=== PATIENT | female | born 1950 | race Caucasian/White ===

== ENCOUNTER 2018-07-13 07:28 | Day surgery (SDC) ==
[2018-07-13] MEDS: BETADINE OPTH PREP OP PRN ×2 (07:45→08:42)
[2018-07-13] MEDS: TETRACAINE 0.5% UNIT-DOSE OP PRN ×2 (07:45→08:42)
[2018-07-13] MEDS: CYCLOGYL 2% OPTH OP PRN ×3 (07:46→07:56)
[2018-07-13] MEDS ORDERED: LIDOCAINE 1%/PHENYLEPHRINE 1.5% BSS (SURGERY) INTRAOCULA ONE (08:54)
[2018-07-13] MEDS ORDERED: BRIMONIDINE TARTRATE 0.2% OPTH SOL OP PRN (08:54)
[2018-07-13] MEDS ORDERED: DEX-MOXI-KETOR OPTH INJ 1/0.5/0.4 MG/ML IO ONE (08:54)
[2018-07-13] MEDS ORDERED: ZOFRAN 4 MG/2 ML IVP ONE (08:54)
[2018-07-13] MEDS ORDERED: BSS WITH EPINEPHRINE OP ONE (08:54)
[2018-07-13] MEDS ORDERED: LIDOCAINE 1% 20 ML MDV ID STA (08:54)
[2018-07-13] MEDS ORDERED: ZOFRAN 4 MG/2 ML ONE (09:49)
[2018-07-13] MEDS ORDERED: VERSED ONE (09:49)
[2018-07-13] MEDS ORDERED: SUBLIMAZE ONE (09:49)
[2018-07-13 12:08] VITALS: BP 135/67
[2018-07-13 13:49] VITALS: TEMP 98.5
== END 2018-07-13 10:45 | disposition home or self-care (01) ==
LOC: SURG 07:28
PROVIDERS: ATTEND Ophthalmology
DX: H25.811 Combined forms of age-related cataract, right eye (principal)

== ENCOUNTER 2018-07-27 08:28 | Day surgery (SDC) ==
[2018-07-27] MEDS: TETRACAINE 0.5% UNIT-DOSE OP PRN ×3 (10:00→10:50)
[2018-07-27] MEDS: BETADINE OPTH PREP OP PRN ×2 (10:00→10:40)
[2018-07-27] MEDS: CYCLOGYL 2% OPTH OP PRN ×3 (10:01→10:11)
[2018-07-27] MEDS ORDERED: BRIMONIDINE TARTRATE 0.2% OPTH SOL OP PRN (10:03)
[2018-07-27] MEDS ORDERED: ZOFRAN 4 MG/2 ML IVP ONE (10:03)
[2018-07-27] MEDS ORDERED: LIDOCAINE 1% 20 ML MDV ID STA (10:03)
[2018-07-27 10:07] VITALS: TEMP 97.6
[2018-07-27] MEDS: DEX-MOXI-KETOR OPTH INJ 1/0.5/0.4 MG/ML IO ONE ×2 (10:44→10:50)
[2018-07-27] MEDS: BSS WITH EPINEPHRINE OP ONE ×2 (10:44→10:50)
[2018-07-27] MEDS: LIDOCAINE 1%/PHENYLEPHRINE 1.5% BSS (SURGERY) INTRAOCULA ONE ×2 (10:44→10:50)
[2018-07-27] MEDS ORDERED: ZOFRAN 4 MG/2 ML ONE (10:46)
[2018-07-27] MEDS ORDERED: SUBLIMAZE ONE (10:46)
[2018-07-27] MEDS ORDERED: VERSED ONE (10:46)
[2018-07-27 14:24] VITALS: BP 127/78
== END 2018-07-27 11:30 | disposition home or self-care (01) ==
LOC: SURG 08:28
PROVIDERS: ATTEND Ophthalmology
DX: H25.812 Combined forms of age-related cataract, left eye (principal)